=== PATIENT | male | born 1995 | race Caucasian/White ===

== ENCOUNTER 2022-01-01 17:33 | Emergency (ER) | payer OTHER, SELFPAY ==
[2022-01-01 17:52] VITALS: BP 130/79; PULSE 82; RESP 16; TEMP 36.9; O2SAT 99
--- NOTE | 2022-01-01 17:56 | ED.LOWEXIN ---
HPI - Extremity Injury (Lower) General Chief Complaint: Extremity Injury, Lower Stated Complaint: right leg pain Time Seen by Provider: 01/01/22 17:56 Source: patient Mode of arrival: ambulatory Limitations: no limitations History of Present Illness HPI Narrative: 26 yo M presents with c/o bruising and swelling to R knee. Two days ago fell off of his skateboard. States he initially had pain but no pain today. After work noticed swelling to LE. concerned for blood clot. Ambulatory with steady gait. All systems reviewed and negative except as noted above. Related Data Allergies Allergy/AdvReac Type Severity Reaction Status Date / Time No Known Allergies Allergy Verified 01/01/22 18:01 Review of Systems Review of Systems: CONSTITUTIONAL: Denies fever, chills, or sweats. EYES: Denies visual changes, redness, or discharge. ENT: Denies rhinorrhea, congestion, sore throat, or otalgia. CARDIOVASCULAR: Denies chest pain, palpitations, or edema. RESPIRATORY: Denies cough or dyspnea. GASTROINTESTINAL: Denies abdominal pain, nausea, vomiting, or diarrhea. GENITOURINARY: Denies dysuria or hematuria. SKIN: Denies rash or itching. MUSCULOSKELETAL: Denies back pain, joint pain, or myalgia. Swelling to right knee and right lower extremity. NEUROLOGIC: Denies headache, numbness, or weakness. PSYCHIATRIC: Denies anxiety or depression. All other systems reviewed are negative, except as documented in HPI. PMFSH Comments At time of signature, agree with nursing past medical, surgical, social and family history. There is no relevant family history pertinent to the presenting complaint. Exam Narrative: GENERAL: This is a well-nourished, well-developed patient, in no apparent distress. HEAD: normocephalic, atraumatic. EYES: PERRL. Sclera clear/white. Vision is grossly intact. EARS: External ears normal, auditory canals clear and without drainage, TMs normal without perforation. Hearing grossly intact. NOSE: External nose normal with no obvious nasal discharge, nares without redness, no rhinorrhea. THROAT: Mucous membranes moist, posterior pharynx clear. NECK: Neck supple, non-tender without lymphadenopathy, masses or thyromegaly. CARDIOVASCULAR: Regular rate and rhythm without murmurs, gallops, or rubs. RESPIRATORY: Clear to auscultation. Breath sounds equal bilaterally. No wheezes, rales, or rhonchi. GASTROINTESTINAL: Abdomen soft, non-tender, nondistended. Bowel sounds are active. No hepato-splenomegaly, or palpable masses. No guarding. SKIN: warm, Dry, intact with no suspicious lesions or rash, good texture and turgor. NEURO: awake, alert, and oriented to person, place and time. There were no obvious focal neurologic abnormalities. EXTREMITIES: Contusion noted to medial aspect right knee with mild swelling. No tenderness or instability to right knee. There is bruising and superficial lacerations to anterior aspect of right lower extremity with swelling to right lower extremity. No calf tenderness. Negative Homans sign bilaterally. BACK: Nontender without deformity. No CVA tenderness. Course Course Level of Care: Express Care Visit Vital Signs Vital signs: Vital Signs Temperature 36.9 C 01/01/22 17:52 Pulse Rate 82 01/01/22 17:52 Respiratory Rate 16 01/01/22 17:52 Blood Pressure 130/79 01/01/22 17:52 Pulse Oximetry 99 01/01/22 17:52 Temperature 36.9 C 01/01/22 17:52 Pulse Rate 82 01/01/22 17:52 Respiratory Rate 16 01/01/22 17:52 Blood Pressure 130/79 01/01/22 17:52 Pulse Oximetry 99 01/01/22 17:52 Reviewed MDM - Extremity Injury (Lower) MDM Narrative Medical decision making narrative: Trauma to right knee and right lower extremity while skateboarding 2 days ago. No pain currently to right knee or to right lower extremity, although there is swelling to right lower extremity. No signs of infection. Recommend patient elevate leg when at rest. Will go to the ER for worsening swelling or if he develop
== END 2022-01-01 18:15 | disposition home or self-care (01) ==
PROVIDERS: Emergency Provider Nurse Practitioner Family
DX: M79.89 Other specified soft tissue disorders (principal); S80.01XA Contusion of right knee, initial encounter; V00.131A Fall from skateboard, initial encounter
CPT/HCPCS: 99212; G0463